=== PATIENT | male | born 1990 | race Caucasian/White ===

== ENCOUNTER 2017-02-01 16:47 | Emergency (ER) | payer OTHER ==
[~2017-02-01] VITALS: Ht 172.7 cm; Wt 100.9 kg
[2017-02-01] MEDS ORDERED: BUPR100SR PO (16:52)
[2017-02-01 20:00] VITALS: BP 144/88
[2017-02-01] MEDS ORDERED: IBUPROFEN 600 MG TABLET PO ONE (20:30)
== END 2017-02-01 20:39 | disposition home or self-care (01) ==
LOC: EMS 16:49
DX: R07.89 Other chest pain (principal); F12.90 Cannabis use, unspecified, uncomplicated; F17.210 Nicotine dependence, cigarettes, uncomplicated
CPT/HCPCS: 93005; 99283; 99406

== ENCOUNTER 2020-12-31 09:41 | Emergency (ER) | payer OTHER ==
[~2020-12-31] VITALS: Ht 172.7 cm; Wt 75.0 kg
[~2020-12-31 09:41] MED LIST: BUPR100SR PO
[2020-12-31] MEDS ORDERED: PERTUSS(ACELL),DIPH,TET VAC/PF 0.5 ML SYRINGE IM. ONE (10:15)
[2020-12-31] MEDS ORDERED: IBUPROFEN 600 MG TABLET PO ONE (10:15)
[2020-12-31] MEDS ORDERED: BACITRACIN 0.9 GM PACKET OINTMENT TP ONE (10:15)
[2020-12-31 10:48] VITALS: BP 159/86
== END 2020-12-31 11:24 | disposition home or self-care (01) ==
LOC: EMS 09:55
DX: S93.402A Sprain of unspecified ligament of left ankle, initial encounter (principal); S50.812A Abrasion of left forearm, initial encounter; F31.9 Bipolar disorder, unspecified; F17.210 Nicotine dependence, cigarettes, uncomplicated; F12.90 Cannabis use, unspecified, uncomplicated; F19.90 Other psychoactive substance use, unspecified, uncomplicated; V19.9XXA Pedal cyclist (driver) (passenger) injured in unspecified traffic accident, initial encounter; Y93.89 Activity, other specified; Y92.89 Other specified places as the place of occurrence of the external cause; Y99.8 Other external cause status
CPT/HCPCS: 90471; 90715; 99283

== ENCOUNTER 2021-10-05 08:06 | Inpatient (IN) | payer MEDICAID, OTHER ==
[~2021-10-05] VITALS: Ht 172.7 cm; Wt 87.5 kg
[~2021-10-05 08:06] MED LIST changes: +BUPR-225 PO; -BUPR100SR PO
[2021-10-05 14:43] LABS: COVID AG,FIA SOURCE NASAL SWAB
[2021-10-05 14:45] LABS: BASOPHILS % (AUTO) 0.6 % (0.0-2.0); EOSINOPHILS % (AUTO) 0.4 % (1.0-6.0); HEMOGLOBIN 15.6 g/dL (13.5-17.5); LYMPHOCYTES # (AUTO) 3.3 K/uL (1.0-4.8); LYMPHOCYTES % (AUTO) 25.4 % (22.0-44.0); MEAN CORPUSCULAR HEMOGLOBIN 29.5 pg (26.0-34.0); MEAN CORPUSCULAR HGB CONC 33.9 G/dL (31.0-37.0); MEAN CORPUSCULAR VOLUME 87 fL (80-100); MONOCYTES # (AUTO) 0.9 K/uL (0.1-1.0); MONOCYTES % (AUTO) 6.9 % (2.0-9.0); NEUTROPHILS # (AUTO) 8.7 K/uL (1.8-7.7); NEUTROPHILS % (AUTO) 66.7 % (40.0-70.0); PLATELET COUNT (AUTO) 285 K/uL (150-450); RED BLOOD CELL COUNT(AUTO) 5.29 MIL/uL (4.50-5.90); RED CELL DISTRIBUTION WIDTH 13.4 % (11.5-14.5)
[2021-10-05 14:50] LABS: APPEARANCE,URINE HAZY (CLEAR); BILIRUBIN,URINE NEGATIVE (NEGATIVE); GLUCOSE, URINE (UA) NEGATIVE (NEGATIVE); KETONES,URINE NEGATIVE (NEGATIVE); LEUKOCYTE ESTERASE ,URINE LARGE (NEGATIVE); NITRATE,URINE NEGATIVE (NEGATIVE); OCCULT BLOOD,URINE NEGATIVE (NEGATIVE); PROTEIN,URINE 30-70 mg/dL (NEGATIVE); SPECIFIC GRAVITIY, URINE 1.036 (1.003-1.030)
[2021-10-05 14:56] LABS: ANION GAP 9 mmol/L (8-16); CALCIUM, TOTAL 8.8 mg/dL (8.8-10.5); CARBON DIOXIDE 28 mmol/L (22-29); CHLORIDE 100 mmol/L (98-107); CREATININE 0.87 mg/dL (0.60-1.30); GLOMERULAR FILTR. RATE CALC > 60 mL/min (>60); GLUCOSE,RANDOM 101 mg/dL (70-110); POTASSIUM 3.3 mmol/L (3.5-5.1); SODIUM SERUM 137 mmol/L (136-145); UREA NITROGEN, BLOOD 11 mg/dL (7-18)
[2021-10-05 14:57] LABS: AMPHET/METH SCREEN,URINE POSITIVE (NEGATIVE); BARBITURATE SCREEN, URINE NEGATIVE (NEGATIVE); BENZODIAZEPINES SCREEN,URINE NEGATIVE (NEGATIVE); CANNABINOID SCREEN,URINE POSITIVE (NEGATIVE); COCAINE SCREEN,URINE NEGATIVE (NEGATIVE); METHADONE SCREEN, URINE NEGATIVE (NEGATIVE); OPIATE SCREEN,URINE NEGATIVE (NEGATIVE); PHENCYCLIDINE SCREEN,URINE NEGATIVE (NEGATIVE)
[2021-10-05 15:01] LABS: ALANINE AMINOTRANSFERASE 28 U/L (12-78); ALKALINE PHOSPHATASE 110 U/L (46-116); ASPARTATE AMINOTRANSFERASE 18 U/L (15-37); BILIRUBIN,TOTAL 0.6 mg/dL (0.1-1.0); TOTAL PROTEIN, SERUM 7.4 g/dL (6.4-8.2)
[2021-10-05 15:09] LABS: RBC,URINE None Seen /HPF (0-2)
[2021-10-05 15:10] LABS: BACTERIA,URINE Moderate /HPF (None Seen); WBC,URINE 51-100 /HPF (0-5)
[2021-10-05] MEDS ORDERED: CefTRIAXone 1 GM/DEXTROSE 50 ML IV ONE (20:45)
[2021-10-05] MEDS: LORazepam 2 MG TABLET PO PRN (21:31)
[2021-10-05] MEDS: OLANZapine 5 MG RAPDIS TABLET PO PRN (21:31)
[2021-10-06 14:55] VITALS: BP 125/82
[2021-10-06 16:00] VITALS: BP 113/72
[2021-10-06] MEDS ORDERED: MAG HYDROX/AL HYDROX/SIMETH ES 30 ML SUSPENSION UDCUP PO PRN (16:00)
[2021-10-06] MEDS ORDERED: LOPERAMIDE HCL 2 MG CAPSULE PO PRN (16:00)
[2021-10-06] MEDS ORDERED: HydrOXYzine PAMOATE 50 MG CAPSULE PO PRN (16:00)
[2021-10-06] MEDS ORDERED: TUBERCULIN, PURIFIED PROTEIN DERIVATIVE 5 TU/0.1 ML SYRINGE ID ONE (16:00)
[2021-10-06] MEDS ORDERED: PROMETHAZINE HCL 25 MG TABLET PO PRN (16:00)
[2021-10-06] MEDS ORDERED: ACETAMINOPHEN 325 MG TABLET PO PRN (16:00)
[2021-10-06] MEDS ORDERED: GuaiFENesin/D-METHORPHAN [SUGAR-FREE] 200-20MG/10 ML SYRUP UDCUP PO PRN (16:00)
[2021-10-06] MEDS ORDERED: MAGNESIUM HYDROXIDE SUSPENSION 30 ML UDCUP PO PRN (16:00)
[2021-10-06] MEDS: THIAMINE 100 MG TABLET PO SCH (17:00)
[2021-10-06] MEDS: LORazepam 2 MG TABLET PO PRN (19:33)
[2021-10-06] MEDS: MELATONIN 5 MG TABLET PO SCH (21:00)
[2021-10-06] MEDS: OLANZapine 5 MG RAPDIS TABLET PO SCH (21:00)
[2021-10-07 04:58] VITALS: BP 114/62
[2021-10-07 07:42] LABS: HEMOGLOBIN A1C 5.7 % (3.8-5.6)
[2021-10-07 07:58] LABS: CHOL/HDL RATIO 4.3 (4.2-7.3); FREE T4 (FREE THYROXINE) 0.89 ng/dL (0.76-1.46); THYROID STIMULATING HORMONE 2.34 uIU/mL (0.36-3.74)
[2021-10-07 08:01] VITALS: BP 123/79
[2021-10-07] MEDS: LORazepam 2 MG TABLET PO PRN ×3 (08:47→20:43)
[2021-10-07] MEDS: NALTREXONE HCL 50 MG TABLET PO SCH (08:47)
[2021-10-07] MEDS: OMEGA-3/DHA/EPA/FISH OIL 1,000 MG CAPSULE PO SCH (08:47)
[2021-10-07] MEDS: FOLIC ACID 1 MG TABLET PO SCH (08:47)
[2021-10-07] MEDS: MULTIVITAMINS WITH MINERALS, THERAPEUTIC TABLET PO SCH (08:47)
[2021-10-07] MEDS: THIAMINE 100 MG TABLET PO SCH ×2 (08:47→16:29)
[2021-10-07 16:19] VITALS: BP 132/72
[2021-10-07] MEDS: OLANZapine 5 MG RAPDIS TABLET PO PRN (16:30)
[2021-10-07] MEDS: OLANZapine 5 MG RAPDIS TABLET PO SCH (20:42)
[2021-10-07] MEDS: MELATONIN 5 MG TABLET PO SCH (20:42)
[2021-10-07] MEDS: ZOLPIDEM TARTRATE 10 MG TABLET PO PRN (20:43)
[2021-10-08 05:40] VITALS: BP 141/91
[2021-10-08 08:26] VITALS: BP 133/98
[2021-10-08] MEDS: MULTIVITAMINS WITH MINERALS, THERAPEUTIC TABLET PO SCH (08:27)
[2021-10-08] MEDS: FOLIC ACID 1 MG TABLET PO SCH (08:27)
[2021-10-08] MEDS: NALTREXONE HCL 50 MG TABLET PO SCH (08:28)
[2021-10-08] MEDS: OMEGA-3/DHA/EPA/FISH OIL 1,000 MG CAPSULE PO SCH (08:28)
[2021-10-08] MEDS: THIAMINE 100 MG TABLET PO SCH ×2 (08:28→16:58)
[2021-10-08] MEDS: LORazepam 2 MG TABLET PO PRN ×2 (08:28→20:04)
[2021-10-08] MEDS ORDERED: POTASSIUM CHLORIDE 20 MEQ ER TABLET PO ONE ×2 (13:45→21:00)
[2021-10-08 16:06] VITALS: BP 115/74
[2021-10-08] MEDS: CIPROFLOXACIN HCL 500 MG TABLET PO SCH (16:58)
[2021-10-08] MEDS: OLANZapine 10 MG RAPDIS TABLET PO SCH (20:04)
[2021-10-08] MEDS: MELATONIN 5 MG TABLET PO SCH (20:04)
[2021-10-09 02:43] VITALS: BP 138/95
[2021-10-09] MEDS: THIAMINE 100 MG TABLET PO SCH ×3 (08:10→16:57)
[2021-10-09] MEDS: CIPROFLOXACIN HCL 500 MG TABLET PO SCH ×3 (08:11→16:57)
[2021-10-09] MEDS: MULTIVITAMINS WITH MINERALS, THERAPEUTIC TABLET PO SCH ×2 (08:11→08:44)
[2021-10-09] MEDS: LORazepam 2 MG TABLET PO PRN (08:11)
[2021-10-09] MEDS: NALTREXONE HCL 50 MG TABLET PO SCH ×2 (08:11→08:44)
[2021-10-09] MEDS: OMEGA-3/DHA/EPA/FISH OIL 1,000 MG CAPSULE PO SCH ×2 (08:11→08:44)
[2021-10-09] MEDS: FOLIC ACID 1 MG TABLET PO SCH ×2 (08:11→08:44)
[2021-10-09 08:15] VITALS: BP 128/77
[2021-10-09 16:06] VITALS: BP 114/74
[2021-10-09] MEDS: OLANZapine 10 MG RAPDIS TABLET PO SCH (20:36)
[2021-10-09] MEDS: MELATONIN 5 MG TABLET PO SCH (20:36)
[2021-10-10 05:14] VITALS: BP 131/83
[2021-10-10 08:14] VITALS: BP 118/69
[2021-10-10] MEDS: CIPROFLOXACIN HCL 500 MG TABLET PO SCH ×2 (08:28→16:26)
[2021-10-10] MEDS: MULTIVITAMINS WITH MINERALS, THERAPEUTIC TABLET PO SCH (08:28)
[2021-10-10] MEDS: THIAMINE 100 MG TABLET PO SCH ×2 (08:28→16:26)
[2021-10-10] MEDS: FOLIC ACID 1 MG TABLET PO SCH (08:28)
[2021-10-10] MEDS: NALTREXONE HCL 50 MG TABLET PO SCH (08:28)
[2021-10-10] MEDS: OMEGA-3/DHA/EPA/FISH OIL 1,000 MG CAPSULE PO SCH (08:28)
[2021-10-10 16:05] VITALS: BP 113/72
[2021-10-10] MEDS ORDERED: DiphenhydrAMINE HCL 50 MG/ML VIAL ONE (18:40)
[2021-10-10] MEDS ORDERED: HALOPERIDOL LACTATE 5 MG/ML VIAL ONE (18:40)
[2021-10-10] MEDS ORDERED: LORazepam 2 MG/ML VIAL ONE (18:40)
[2021-10-10] MEDS ORDERED: LORazepam 2 MG/ML VIAL IM ONE (19:00)
[2021-10-10] MEDS ORDERED: DiphenhydrAMINE HCL 50 MG/ML VIAL IM ONE (19:00)
[2021-10-10] MEDS ORDERED: HALOPERIDOL LACTATE 5 MG/ML VIAL IM ONE (19:00)
[2021-10-10] MEDS: MELATONIN 5 MG TABLET PO SCH (20:43)
[2021-10-10] MEDS: OLANZapine 10 MG RAPDIS TABLET PO SCH (20:44)
[2021-10-11 03:48] VITALS: BP 108/68
[2021-10-11 08:08] VITALS: BP 120/72
[2021-10-11] MEDS: CIPROFLOXACIN HCL 500 MG TABLET PO SCH ×2 (09:20→16:25)
[2021-10-11] MEDS: OMEGA-3/DHA/EPA/FISH OIL 1,000 MG CAPSULE PO SCH (09:20)
[2021-10-11] MEDS: FOLIC ACID 1 MG TABLET PO SCH (09:20)
[2021-10-11] MEDS: NALTREXONE HCL 50 MG TABLET PO SCH (09:20)
[2021-10-11] MEDS: MULTIVITAMINS WITH MINERALS, THERAPEUTIC TABLET PO SCH (09:20)
[2021-10-11] MEDS: THIAMINE 100 MG TABLET PO SCH ×2 (09:20→16:25)
[2021-10-11 16:09] VITALS: BP 134/73
[2021-10-11] MEDS: MELATONIN 5 MG TABLET PO SCH (20:16)
[2021-10-11] MEDS: OLANZapine 10 MG RAPDIS TABLET PO SCH (20:17)
[2021-10-12 03:25] VITALS: BP 126/78
[2021-10-12 07:24] LABS: BASOPHILS % (AUTO) 0.5 % (0.0-2.0); EOSINOPHILS % (AUTO) 2.4 % (1.0-6.0); HEMATOCRIT 43.6 % (41-53); HEMOGLOBIN 14.8 g/dL (13.5-17.5); LYMPHOCYTES # (AUTO) 3.3 K/uL (1.0-4.8); LYMPHOCYTES % (AUTO) 35.7 % (22.0-44.0); MEAN CORPUSCULAR VOLUME 88 fL (80-100); MONOCYTES # (AUTO) 0.6 K/uL (0.1-1.0); MONOCYTES % (AUTO) 6.6 % (2.0-9.0); NEUTROPHILS % (AUTO) 54.8 % (40.0-70.0); PLATELET COUNT (AUTO) 296 K/uL (150-450); RED BLOOD CELL COUNT(AUTO) 4.94 MIL/uL (4.50-5.90); RED CELL DISTRIBUTION WIDTH 13.5 % (11.5-14.5)
[2021-10-12 07:34] LABS: ANION GAP 5 mmol/L (8-16); CALCIUM, TOTAL 8.8 mg/dL (8.8-10.5); CARBON DIOXIDE 30 mmol/L (22-29); CHLORIDE 103 mmol/L (98-107); CREATININE 0.84 mg/dL (0.60-1.30); GLOMERULAR FILTR. RATE CALC > 60 mL/min (>60); GLUCOSE,RANDOM 121 mg/dL (70-110); POTASSIUM 4.1 mmol/L (3.5-5.1); SODIUM SERUM 138 mmol/L (136-145); UREA NITROGEN, BLOOD 16 mg/dL (7-18)
[2021-10-12] MEDS: NALTREXONE HCL 50 MG TABLET PO SCH (08:16)
[2021-10-12] MEDS: THIAMINE 100 MG TABLET PO SCH ×2 (08:16→16:52)
[2021-10-12] MEDS: OMEGA-3/DHA/EPA/FISH OIL 1,000 MG CAPSULE PO SCH (08:16)
[2021-10-12] MEDS: CIPROFLOXACIN HCL 500 MG TABLET PO SCH ×2 (08:16→16:52)
[2021-10-12] MEDS: MULTIVITAMINS WITH MINERALS, THERAPEUTIC TABLET PO SCH (08:16)
[2021-10-12] MEDS: LORazepam 2 MG TABLET PO PRN ×2 (08:16→16:53)
[2021-10-12] MEDS: FOLIC ACID 1 MG TABLET PO SCH (08:16)
[2021-10-12 16:03] VITALS: BP 109/63
[2021-10-12] MEDS: MELATONIN 5 MG TABLET PO SCH (20:39)
[2021-10-12] MEDS: OLANZapine 10 MG RAPDIS TABLET PO SCH (20:39)
[2021-10-13 05:12] VITALS: BP 125/83
[2021-10-13] MEDS: THIAMINE 100 MG TABLET PO SCH ×2 (08:06→16:37)
[2021-10-13] MEDS: OMEGA-3/DHA/EPA/FISH OIL 1,000 MG CAPSULE PO SCH (08:06)
[2021-10-13] MEDS: FOLIC ACID 1 MG TABLET PO SCH (08:06)
[2021-10-13] MEDS: CIPROFLOXACIN HCL 500 MG TABLET PO SCH ×2 (08:06→16:37)
[2021-10-13] MEDS: MULTIVITAMINS WITH MINERALS, THERAPEUTIC TABLET PO SCH (08:07)
[2021-10-13] MEDS: NALTREXONE HCL 50 MG TABLET PO SCH (08:07)
[2021-10-13] MEDS: LORazepam 2 MG TABLET PO PRN ×3 (08:07→20:37)
[2021-10-13 08:14] VITALS: BP 120/65
[2021-10-13 16:14] VITALS: BP 114/73
[2021-10-13] MEDS ORDERED: MELA5TAB40 PO (20:26)
[2021-10-13] MEDS ORDERED: OLAN10TA26 PO (20:26)
[2021-10-13] MEDS ORDERED: OMEG-108 PO (20:26)
[2021-10-13] MEDS ORDERED: NALT50TA PO (20:26)
[2021-10-13] MEDS: OLANZapine 10 MG RAPDIS TABLET PO SCH (20:36)
[2021-10-13] MEDS: ZOLPIDEM TARTRATE 10 MG TABLET PO PRN (20:36)
[2021-10-13] MEDS: MELATONIN 5 MG TABLET PO SCH (20:36)
[2021-10-14 01:12] VITALS: BP 140/99
[2021-10-14] MEDS: LORazepam 2 MG TABLET PO PRN (08:12)
[2021-10-14] MEDS: MULTIVITAMINS WITH MINERALS, THERAPEUTIC TABLET PO SCH (08:12)
[2021-10-14] MEDS: OMEGA-3/DHA/EPA/FISH OIL 1,000 MG CAPSULE PO SCH (08:12)
[2021-10-14] MEDS: NALTREXONE HCL 50 MG TABLET PO SCH (08:12)
[2021-10-14] MEDS: FOLIC ACID 1 MG TABLET PO SCH (08:12)
[2021-10-14] MEDS: THIAMINE 100 MG TABLET PO SCH (08:12)
[2021-10-14] MEDS ORDERED: OLAN10TA26 PO (09:26)
[2021-10-14] MEDS ORDERED: MELA5TAB21 PO (09:27)
== END 2021-10-14 09:58 | disposition home or self-care (01) | DRG 750 ==
LOC: EMS 08:06 → B3A 10-06 10:17
PROVIDERS: ADMIT Psychiatry & Neurology Psychiatry; ATTEND Psychiatry & Neurology Psychiatry
DX: F20.9 Schizophrenia, unspecified (principal); F22 Delusional disorders; R45.850 Homicidal ideations; Z91.19 Patient's noncompliance with other medical treatment and regimen; F17.210 Nicotine dependence, cigarettes, uncomplicated; F41.9 Anxiety disorder, unspecified; F32.A Depression, unspecified; F43.20 Adjustment disorder, unspecified; F15.10 Other stimulant abuse, uncomplicated; F12.10 Cannabis abuse, uncomplicated; F32.9 Major depressive disorder, single episode, unspecified; Z20.822 Contact with and (suspected) exposure to COVID-19; G47.00 Insomnia, unspecified; N39.0 Urinary tract infection, site not specified; Z55.9 Problems related to education and literacy, unspecified; Z59.9 Problem related to housing and economic circumstances, unspecified; Z63.9 Problem related to primary support group, unspecified; Z65.3 Problems related to other legal circumstances
CPT/HCPCS: 80048; 80053; 80061; 81001; 83036; 84439; 84443; 85025; 86592; 99285; G0480; J0696; J1200; J1630; J2060; Q9967